=== PATIENT | male | born 1965 | race Caucasian/White ===

== ENCOUNTER → 2020-01-10 | Outpatient (CLI) | payer OTHER ==
--- NOTE | 2020-01-10 11:41 | ER RDC ASSESSMENT REPORT ---
Intake - In the Last 14 days Have you traveled outside [place]?: No Have you been in close contact with someone CONFIRMED: No Worked in Healthcare?: No - Symptoms Subjective Fever(Ewing feverish): No Chills: No Muscule Aches: No Runny Nose: No Sore Throat: No Cough (New or worsening chronic cough): No Shortness of breath: No Nausea or Vomiting: No Headache: Yes Abdominal Pain: No Diarrhea(3 or more loose stools in last 24 hours): No - Do you have any of the following Chronic lung disease: Asthma or emphysema or COPD: No Cystic Fibrosis: No Diabetes: No High Blood Pressure: No Cardiovascular Disease: No Chronic Kidney Disease: No Chronic Liver Disease: No Chronic blood disorder like Sickle Cell Disease: No Weak immune system due to disease or medication: No Neurologic condition that limits movement: No Developmental delay - Moderate to Severe: No Recent (within past 2 weeks) or current : No Morbid Obesity (>100 pounds over ideal weight): No - Objective Temperature: 98.6 F Pulse Rate: 100 Respiratory Rate: 14 Blood Pressure: 159/88 O2 Sat by Pulse Oximetry: 95 Objective: Given above, testing performed: If Testing Performed: Test Specimen Type Sent to General - General Information source: Patient Notes: Patient presents to the RDC for screening for the coronavirus. Patient reports headache symptoms for the past 8 days. Past Medical History - General Information source: Patient - Social History Smoking Status: Never Smoker - Medical History Medical History: Negative Surgical Hx: Negative Physical Exam - Notes Notes: The patient was evaluated during the global Covid 19 pandemic, and that diagnosis was suspected/considered upon their initial presentation. Their evaluation, treatment and testing was consistent with current guidelines for patients who present with complaints or symptoms that may be related to Covid 19. Full physical exam could not be performed due to covid 19 isolation protocols. Constitutional: Nontoxic appearance, no acute distress Eyes: Nonicteric, extraocular movements intact, sclera clear Cardiovascular: Heart rate and rhythm regular, no JVD Respiratory: Breath sounds clear bilaterally, nonlabored breathing, no use of accessory muscles, no tachypnea Gastrointestinal: Abdomen not distended Muculoskeletal: Moves all extremities well Skin: Normal color Neuro: Awake alert oriented, normal speech Psych: Normal mood and affect Diagnostic Results Laboratory Results: Patient presents with symptoms worrisome for possible Covid 19. Patient does not have emergency worrying symptoms such as difficulty breathing, shortness of breath, chest pain, pressure, confusion or cyanosis. Patient appears suitable for discharge as they are not of an advanced age, do not have any chronic medical conditions such as diabetes, CAD, immune deficiency, chronic lung disease or chronic kidney disease. Patient's vital signs are stable and patient is nontoxic in appearance. Good return precautions have been discussed with patient, patient verbalized understanding and is agreeable with discharge plan of care at this time. Patient Education/Counseling Counseling/Education: Patient was provided with discharge information including: As a person under investigation for Covid 19, the [facility], division of public health advises you to adhere to the following guidance until your test results are reported to you. If your test result is positive, you will receive additional information from your provider and your local health department at that time. Remain at home until you are cleared by the health provider or public health authorities. Keep a log of visitors to your home, notify any visitors to your home of your isolation status. If you plan to move to a new address or leave the county, notify the local health department in your County. Call your doctor or seek care if you have an urgent medical need. Before seeking medical care, call ahead to get instructions from the provider before arriving at the medical office clinic or hospital. Notify them that you are being tested for the virus that causes Covid 19 so that arrangements can be made, as necessary, to prevent transmission to others in the healthcare setting. Next, notify the local health department in your county. If a medical emergency arises and you need to call 911, inform the first responders that you are being tested for the virus that causes Covid 19. Next, notify the local health department in your county. RDC Discharge - Discharge Clinical Impression: Encounter for screening laboratory testing for COVID-19 virus Condition: Stable Disposition: Home; Selfcare
[2020-01-10 11:43] VITALS: BP 159/88
== END ==
LOC: RDC 10:08
PROVIDERS: ATTEND Nurse Practitioner Family
DX: U07.1 COVID-19 (principal); R51.9 Headache, unspecified
CPT/HCPCS: U0003; C9803; 87635; 99201

== ENCOUNTER 2020-01-12 11:50 | Emergency (ER) | payer OTHER ==
[2020-01-12] MEDS ORDERED: NORMAL SALINE 1000 ML 1,000 ML IV ONE (12:27)
[2020-01-12 13:14] LABS: ABSOLUTE MONOCYTES (AUTO) 0.6 10^3/uL (0.1-1.4); ABSOLUTE NEUT (AUTO) 3.4 10^3/uL (1.7-8.2); BASOPHILS % (AUTO) 0.7 % (0-2); EOSINOPHILS % (AUTO) 0.5 % (0-6); HEMATOCRIT 46.3 % (37.9-51.0); HEMOGLOBIN 16.6 g/dL (13.5-17.0); LYMPHOCYTES % (AUTO) 33.1 % (13-45); MEAN CORPUSCULAR HEMOGLOBIN 31.8 pg (27.0-33.4); MEAN CORPUSCULAR HGB CONC 35.8 g/dL (32.0-36.0); MEAN CORPUSCULAR VOLUME 89 fl (80-97); MONOCYTES % (AUTO) 9.5 % (3-13); PLATELET COUNT 236 10^3/uL (150-450); RED BLOOD COUNT 5.21 10^6/uL (4.35-5.55); RED CELL DISTRIBUTION WIDTH 13.1 % (11.5-14.0); SEGMENTED NEUTROPHILS % (AUTO) 56.2 % (42-78); TOTAL CELLS COUNTED % (AUTO) 100 %
--- NOTE | 2020-01-12 13:28 | RADIOLOGY REPORT (SQ) ---
EXAM DESCRIPTION: CHEST SINGLE VIEW IMAGES COMPLETED DATE/TIME: 01/12/2020 1:05 pm REASON FOR STUDY: Covid positive, fever COMPARISON: None. EXAM PARAMETERS: NUMBER OF VIEWS: One view. TECHNIQUE: Single frontal radiographic view of the chest acquired. RADIATION DOSE: NA LIMITATIONS: None. FINDINGS: LUNGS AND PLEURA: No opacities, masses or pneumothorax. No pleural effusion. MEDIASTINUM AND HILAR STRUCTURES: No masses. Contour normal. HEART AND VASCULAR STRUCTURES: Heart normal in size. Normal vasculature. BONES: No acute findings. HARDWARE: None in the chest. OTHER: No other significant finding. IMPRESSION: NO ACUTE RADIOGRAPHIC FINDING IN THE CHEST. TECHNICAL DOCUMENTATION: JOB ID: [id number] [email or web address]- All Rights Reserved Reading location - IP/workstation name: [email or web address]
--- NOTE | 2020-01-12 13:35 | ER Document Report ---
Entered by ADAL SHUKLA SCRIBE 01/12/20 0010 Acting as scribe for:VINCENZO ARCHIBALD MD ED General - General Stated Complaint: TREMORS/HEADACHE Time Seen by Provider: 01/12/20 12:27 Primary Care Provider: TALIA LESTER MD [Primary Care Provider] - 01/14/20 Mode of Arrival: Ambulatory Information source: Patient Notes: This 54 year old male patient presents to the emergency department today with complaints of a headache, loss of taste/smell, and feeling "nervous and shaky". Patient was tested three days ago for COVID and he was positive. Patient reports the headache began Tuesday, January 03, loss of smell/taste began tuesday, tuesday he began having difficulty writing because of the shakiness, and he was tested . Patient has not had an appetite the entire time. He denies any fevers our cough. TRAVEL OUTSIDE OF THE [place] IN LAST 30 DAYS: No - Related Data Allergies/Adverse Reactions: No Known Allergies Allergy (Unverified 01/12/20 13:20) Past Medical History - General Information source: Patient - Social History Smoking Status: Never Smoker Cigarette use (# per day): No Frequency of alcohol use: Social Drug Abuse: None Lives with: Family Family History: Reviewed & Not Pertinent, Other - Father has Parkinson's - Medical History Medical History: Negative Past Surgical History: Reports: Hx Oral Surgery - dental extraction Review of Systems - Review of Systems Constitutional: denies: Fever EENT: No symptoms reported Cardiovascular: No symptoms reported Respiratory: denies: Cough Gastrointestinal: No symptoms reported Genitourinary: No symptoms reported Male Genitourinary: No symptoms reported Musculoskeletal: No symptoms reported Skin: No symptoms reported Hematologic/Lymphatic: No symptoms reported Neurological/Psychological: See HPI, Anxiety, Headaches, Tremor -: Yes All other systems reviewed and negative Physical Exam - Vital signs Vitals: Temp Pulse Resp BP Pulse Ox 98.6 F 103 H 16 158/99 H 97 01/12/20 12:04 01/12/20 12:04 01/12/20 12:04 01/12/20 12:04 01/12/20 12:04 - Notes Notes: Physical Exam: General: Alert, appears nervous, shaky. HEENT: Normocephalic. Atraumatic. PERRL. Extraocular movements intact. Oropharynx clear. No nystagmus. Neck: Supple. Non-tender. Respiratory: No respiratory distress. Clear and equal breath sounds bilaterally. Cardiovascular: Regular rate and rhythm. Abdominal: Normal Inspection. Non-tender. No distension. Normal Bowel Sounds. Back: No gross abnormalities. Extremities: Moves all four extremities. Upper extremities: Normal inspection. Normal ROM. Lower extremities: Normal inspection. No edema. Normal ROM. Neurological: Normal cognition. AAOx4. Normal speech. Generalized ataxia. Is able to perform zecsyb-ph-etoh testing bilaterally but he does shake quite a bit when doing so. No hyperreflexia. There is no clonus with extension and flexion of the wrists. Psychological: Normal affect. Normal Mood. Skin: Warm. Dry. Normal color. Course - Re-evaluation Re-evalutation: 01/12/20 19:06 The patient was evaluated during the global COVID-19 pandemic and that diagnosis was suspected/considered upon their initial presentation. Their evaluation, treatment and testing was consistent with current guidelines for patients who present with complaints or symptoms that may be related to COVID-19. 01/12/20 20:33 The patient has been taking an aspirin daily. The chest x-ray and CT scan of the head are unremarkable. The D-dimer is undetectable. The CRP is undetectable. The ESR is 8. Serum ferritin and LDH levels are normal. The patient does not have any elevated markers of serious Covid infection. He also does not have any elevated inflammatory markers making this a Covid encephalitis type problem very on likely. After the patient was given Compazine, Benadryl, and Toradol for his headache, his headache is improved but still some present. I did notice that the hand tremors seem to have decreased markedly from the initial evaluation several hours ago. I did discuss the case with his primary care provider Dr. Lester, he recommended that I do give the patient some Ativan for tonight and tomorrow and to call the office Tuesday for follow-up. - Vital Signs Vital signs: Temp Pulse Resp BP Pulse Ox 98.6 F 103 H 16 158/99 H 97 01/12/20 12:15 01/12/20 12:04 01/12/20 12:04 01/12/20 12:04 01/12/20 12:04 - Laboratory Result Diagrams: 01/12/20 12:45 01/12/20 12:45 Laboratory results interpreted by me: 01/12/20 12:45 Urine Protein 30 H Urine Urobilinogen 2.0 H Urine Ascorbic Acid 40 H - Diagnostic Test Radiology reviewed: Image reviewed, Reports reviewed - Noncontrast CT scan of the head shows normal brain. Chest x-ray shows normal chest x-ray with no cardiopulmonary abnormalities. - EKG Interpretation by Me EKG shows normal: Sinus rhythm, [place], Intervals, QRS Complexes, ST-T Waves Rate: Normal - 88 Rhythm: NSR, APC's P Waves: LAE When compared to previous EKG there are: Previous EKG unavailable - Consults Dr. Wilkins Time consulted: 17:00 Consulted provider: will come to ER Discharge - Discharge Clinical Impression: COVID-19, Coarse tremors Condition: Stable Disposition: HOME, SELF-CARE Additional Instructions: At this time you do not have any findings to suggest that your health is in imminent risk from your Covid infection. You are now 9 days since onset of symptoms, and all of your laboratory work and x-rays and scans are normal. Your symptoms may be related to Covid, may be caused by anxiety related to Covid, and may have nothing to do with Covid. At this time it is difficult to know for certain. You were discharged home with 1 tablet of Ativan 1 mg. Take 1/2 tablet when you get home to see if it helps the anxiety sensations and shaking and allows you to sleep. You may take the other half of the tablet if you find that you need it. A prescription was sent into your pharmacy for 2 more of the Ativan tablets to take tomorrow if you find that you need them. Call Talia Lester MD on Tuesday to discuss how you are feeling and get instructions on further evaluations if needed. RETURN TO THE EMERGENCY ROOM IF ANY NEW OR WORSENING SYMPTOMS. Prescriptions: Lorazepam [Ativan 1 mg Tablet] 1 mg PO ASDIR PRN #2 tablet PRN Reason: Referrals: TALIA LESTER MD [Primary Care Provider] - 01/14/20 I personally performed the services described in the documentation, reviewed and edited the documentation which was dictated to the scribe in my presence, and it accurately records my words and actions.
[2020-01-12 13:38] LABS: ALBUMIN 4.4 g/dL (3.5-5.0); ALKALINE PHOSPHATASE 79 U/L (38-126); ANION GAP 11 (5-19); ASPARTATE AMINO TRANSFERASE 35 U/L (17-59); BILIRUBIN,TOTAL 1.1 mg/dL (0.2-1.3); BLOOD UREA NITROGEN 13 mg/dL (7-20); CALCIUM 9.3 mg/dL (8.4-10.2); CARBON DIOXIDE 26 mmol/L (22-30); CHLORIDE 107 mmol/L (98-107); CREATINE KINASE 63 U/L (55-170); GLUCOSE 90 mg/dL (75-110); POTASSIUM 4.3 mmol/L (3.6-5.0); TOTAL PROTEIN 7.7 g/dL (6.3-8.2)
[2020-01-12 13:48] LABS: APPEARANCE,URINE CLEAR; BILIRUBIN,URINE NEGATIVE (NEGATIVE); COLOR,URINE YELLOW; GLUCOSE, URINE NEGATIVE (NEGATIVE); KETONES,URINE NEGATIVE (NEGATIVE); LEUKOCYTE ESTERASE,URINE NEGATIVE (NEGATIVE); NITRITE,URINE NEGATIVE (NEGATIVE); PROTEIN,URINE 30 mg/dL (NEGATIVE); URINE SPECIFIC GRAVITY 1.028
[2020-01-12 13:50] LABS: ERYTHROCYTE SEDIMENTATION RATE 8 mm/hr (0-20)
[2020-01-12 14:18] LABS: C-REACTIVE PROTEIN < 5.0 mg/L (<10.0)
[2020-01-12] MEDS ORDERED: DEXTROSE 5%-LACTATED RINGERS 1,000 ML IV ONE (14:24)
--- NOTE | 2020-01-12 15:04 | RADIOLOGY REPORT (SQ) ---
EXAM DESCRIPTION: CT HEAD WITHOUT IMAGES COMPLETED DATE/TIME: 01/12/2020 2:44 pm REASON FOR STUDY: Covid positive, tremors COMPARISON: None. TECHNIQUE: Axial images acquired through the brain without intravenous contrast. Images reviewed wi th bone, brain and subdural windows. Additional sagittal and coronal reconstructions were generated. Images stored on PACS. All CT scanners at this facility use dose modulation, iterative reconstruction, and/or weight based d osing when appropriate to reduce radiation dose to as low as reasonably achievable (ALARA). [facility]: Dose Right [facility]: CareDose [facility]: Dose Right [facility]: Teradose 4D [facility]: Smart PocketSuite RADIATION DOSE: CT Rad equipment meets quality standard of care and radiation dose reduction techniq ues were employed. CTDIvol: 53.2 mGy. DLP: 1070 mGy-cm. mGy. LIMITATIONS: None. FINDINGS: VENTRICLES: Normal size and contour. CEREBRUM: No masses. No hemorrhage. No midline shift. No evidence for acute infarction. Normal gra y/white matter differentiation. No areas of low density in the white matter. CEREBELLUM: No masses. No hemorrhage. No alteration of density. No evidence for acute infarction. EXTRAAXIAL SPACES: No fluid collections. No masses. ORBITS AND GLOBE: No intra- or extraconal masses. Normal contour of globe without masses. CALVARIUM: No fracture. PARANASAL SINUSES: No fluid or mucosal thickening. SOFT TISSUES: No mass or hematoma. OTHER: No other significant finding. IMPRESSION: NORMAL BRAIN CT WITHOUT CONTRAST. EVIDENCE OF ACUTE STROKE: NO. COMMENT: Quality ID # [id number]: Final reports with documentation of one or more dose reduction techniques (e.g., Automated exposure control, adjustment of the mA and/or kV according to patient size, use of iterative reconstruction technique) TECHNICAL DOCUMENTATION: JOB ID: [id number] 2010 [employer]- All Rights Reserved Reading location - IP/workstation name: [email or web address]
[2020-01-12] MEDS ORDERED: DIPHENHYDRAMINE HCL 50 MG/ML VIAL IV ONE (18:56)
[2020-01-12] MEDS ORDERED: PROCHLORPERAZINE EDISYLATE INJ 10 MG/2 ML VIAL IV ONE (18:57)
[2020-01-12] MEDS ORDERED: KETOROLAC TROMETHAMINE INJ/PF 30 MG/1 ML SDV IV ONE (18:57)
--- NOTE | 2020-01-12 19:15 | PDOC CONSULTATION ---
Consultation Consult Date: 01/12/20 Attending physician:: VINCENZO ARCHIBALD Provider Consulted: FER VELASQUEZ Consult reason:: New onset tremor, COVID-19 positive, migraine History of Present Illness Admission Date/PCP: TALIA LESTER MD History of Present Illness: ALONDRA CASTILLO is a 54 year old male with past medical history significant for chronic intermittent migraines who presents to the ED with a 6-day history of persistent tremor which patient states has been interfering with his every day tasks including writing. He does not have a resting tremor but when he holds his hands out they began shaking uncontrollably. He denies any focal or generalized weakness. As I speak with the patient during the encounter, he begins talking with his hands and making hand gestures without any tremor activity noted. Unclear if the tremors only arise when the patient is thinking about them. He denies ever having neurologic symptoms with his migraine headaches but states he started having a migraine headache on the Tuesday, January 03 prior to having the tremor began the following Tuesday. Patient got Covid tested on and his result came back today positive. He has no significant respiratory symptoms but has lost his sense of smell and taste. Patient states he has actually been under excessive amount of stress lately and its possible he may be developing anxiety problems. Medicine was consulted for neurologic evaluation. Patient states he wants to go home tonight. Past Medical History Cardiac Medical History: Reports: None Pulmonary Medical History: Reports: None Neurological Medical History: Reports: Migraine Past Surgical History Past Surgical History: Reports: None Social History Information Source: Patient, Emergency Med Personnel Lives with: Family Smoking Status: Never Smoker Electronic Cigarette use?: No Frequency of Alcohol Use: Rare - Advance Directive Resuscitation Status: Full Code Family History Family History: Reviewed & Not Pertinent, Other - Father has Parkinson's Parental Family History Reviewed: Yes Children Family History Reviewed: Yes Sibling(s) Family History Reviewed.: Yes Medication/Allergy Allergies/Adverse Reactions: No Known Allergies Allergy (Unverified 01/12/20 13:20) Review of Systems All systems: reviewed and no additional remarkable complaints except as stated - Review of systems per HPI otherwise negative Physical Exam Vital Signs: Temp Pulse Resp BP Pulse Ox 98.6 F 103 H 16 158/99 H 97 01/12/20 12:15 01/12/20 12:04 01/12/20 12:04 01/12/20 12:04 01/12/20 12:04 Intake & Output 01/11/20 01/12/20 01/13/20 06:59 06:59 06:59 Intake Total 1999 Balance 1999 Weight 88.451 kg Exam: General appearance: PRESENT: no acute distress, well-developed, well-nourished Head exam: PRESENT: atraumatic, normocephalic Eye exam: PRESENT: conjunctiva pink. ABSENT: scleral icterus Mouth exam: PRESENT: moist Respiratory exam: PRESENT: clear to auscultation [place]. ABSENT: rales, rhonchi, wheezes Cardiovascular exam: PRESENT: RRR. ABSENT: diastolic murmur, rubs, systolic murmur GI/Abdominal exam: PRESENT: normal bowel sounds, soft. ABSENT: distended, guard ing, mass, organolmegaly, rebound, tenderness Neurological exam: PRESENT: alert, awake, oriented to person, oriented to place, oriented to time, oriented to situation; cranial nerves II through XII grossly intact, strength 5/5 upper and lower extremities equal bilaterally, sensation intact upper and lower extremities, no facial droop, PERRLA; inconsistent tremor when he holds his hands out, no resting tremor noted, no intention tremor when patient is speaking freely and using hand gestures Psychiatric exam: PRESENT: appropriate affect, normal mood Skin exam: PRESENT: dry, intact, warm Results Laboratory Results: 01/12/20 12:45 01/12/20 12:45 01/12/20 01/12/20 01/12/20 12:45 12:45 12:45 WBC 6.0 RBC 5.21 Hgb 16.6 Hct 46.3 MCV 89 MCH 31.8 MCHC 35.8 RDW 13.1 Plt Count 236 Seg Neutrophils % 56.2 Sodium 143.8 Potassium 4.3 Chloride 107 Carbon Dioxide 26 Anion Gap 11 BUN 13 Creatinine 0.91 Est GFR ( Amer) > 60 Glucose 90 Calcium 9.3 Magnesium 2.3 Ferritin 261.00 Total Bilirubin 1.1 AST 35 Alkaline Phosphatase 79 C-Reactive Protein < 5.0 Total Protein 7.7 Albumin 4.4 Urine Color YELLOW Urine Appearance CLEAR Urine pH 5.0 Ur Specific [place] 1.028 Urine Protein 30 H Urine Glucose (UA) NEGATIVE Urine Ketones NEGATIVE Urine Blood NEGATIVE Urine Nitrite NEGATIVE Ur Leukocyte Esterase NEGATIVE Urine WBC (Auto) 1 Urine RBC (Auto) 1 01/12/20 01/12/20 12:45 12:45 Creatine Kinase 63 Troponin I < 0.012 Impressions: Chest X-Ray 01/12/20 12:28 IMPRESSION: NO ACUTE RADIOGRAPHIC FINDING IN THE CHEST. Head CT 01/12/20 14:25 IMPRESSION: NORMAL BRAIN CT WITHOUT CONTRAST. EVIDENCE OF ACUTE STROKE: NO. Assessment and Plan - Diagnosis (1) Tremor Is this a current diagnosis for this admission?: Yes Plan: Unclear etiology Differential diagnosis: Complex migraine causing tremor, acute versus generalized anxiety disorder, COVID-19 associated neuropathy Recommend follow-up with PCP on Tuesday, possible patient would benefit from referral to neurology to have migraines evaluated ED will give migraine cocktail and reassess; likely will improve both migraine associated tremor and anxiety associated tremor due to sedating effects of medications Consider starting antianxiety medications if migraine is ruled out as a cause of tremor; SSRI may be appropriate Continue daily aspirin Offered MRI brain to patient which she refused and stated he would like to discuss this further with his PCP (2) Migraine Is this a current diagnosis for this admission?: Yes Plan: Possible complex migraine causing tremor Recommend follow-up with neurology to obtain abortive and possibly preventative therapy depending on how often he gets migraines and how severely they affect his daily life Consider referral to neurology at either [facility] or [place] [facility] to give migraine cocktail (3) COVID-19 virus infection Is this a current diagnosis for this admission?: Yes Plan: Positive COVID-19 test on 01/21, symptoms started on January 03 per patient with a headache which progressed to anosmia and loss of taste Patient instructed to return to the hospital immediately with any worsening of respiratory symptoms including shortness of breath/ALVAREZ, he voiced understanding No indication for steroids or other COVID-19 specific treatments as the patient does not require supplemental oxygen - Time Time Spent with patient: 35 or more minutes Medications reviewed and adjusted accordingly: Yes Anticipated Discharge Disposition: Home, Self Care Anticipated Discharge Timeframe: within 24 hours
[2020-01-12] MEDS ORDERED: LORAZEPAM 1 MG TABLET PO ONE (20:23)
[2020-01-12 21:01] VITALS: BP 145/85
--- NOTE | 2020-01-13 18:13 | EKG REPORT ---
SEVERITY:- BORDERLINE ECG - SINUS RHYTHM ATRIAL PREMATURE COMPLEX PROBABLE LEFT ATRIAL ABNORMALITY : Confirmed by: Kenneth Jon MD 13-Jan-2020 18:11:50
== END 2020-01-12 21:01 | disposition home or self-care (01) ==
LOC: ER 11:50
DX: U07.1 COVID-19 (principal); R51.9 Headache, unspecified; R43.8 Other disturbances of smell and taste; G25.2 Other specified forms of tremor; F41.9 Anxiety disorder, unspecified; Z79.82 Long term (current) use of aspirin
CPT/HCPCS: 93005; 99285; 96361; 96375; 96365; 36415; 87040; 82962; 82550; 82728; 83615; 83735; 85025; 85652; 86140; 80053; 81001; 84484; 85379; 71045; 70450; 93010; J1200; J1885; J0780; J7121; J7030